=== PATIENT | female | born 1960 | race Caucasian/White ===

== ENCOUNTER 2023-03-30 16:34 | Emergency (ER) | payer BC, OTHER ==
[2023-03-30 17:03] VITALS: BP 126/64; PULSE 65; RESP 18; TEMP 98.1; BMI 27.2
[2023-03-30] MEDS ORDERED: LIDOCAINE HCL 1%, 10 MG/ML (20ML VIAL) ONE (18:19)
[2023-03-30] MEDS: LIDOCAINE HCL 1%, 10 MG/ML (50 mL VIAL) INF ONE (18:29)
[2023-03-30] MEDS ORDERED: IBUPROFEN 400 MG TABLET (FP) PO ONE ×2 (18:33→18:36)
== END 2023-03-30 18:43 | disposition home or self-care (01) ==
LOC: FER 16:34
DX: M25.562 Pain in left knee (principal); S80.02XA Contusion of left knee, initial encounter; W01.198A Fall on same level from slipping, tripping and stumbling with subsequent striking against other object, initial encounter
CPT/HCPCS: 73562-TC-LT-FY; 99283-25